=== PATIENT | female | born 2000 ===

== ENCOUNTER 2022-02-18 18:36 | Inpatient (IN) | payer SELFPAY ==
[~2022-02-18 18:36] MED LIST: ACETAMINOPHEN 325 MG TAB PO PRN; BUTORPHANOL 2 MG/1 ML INJ IV PRN; CARBOPROST TROMETHAMINE 250 MCG/1 ML INJ IM PRN; LACTATED RINGERS 1,000 ML IV SCH; LIDOCAINE (2%) 20 MG/1 ML VIAL 20 ML MDV INFILTRATI ONE; LOPERAMIDE 2 MG CAP PO PRN; METHYLERGONOVINE MALEATE 0.2 MG/ML VIAL IM PRN; MINERAL OIL 30 ML ORAL LIQD PO PRN; ONDANSETRON 4 MG/2 ML INJ IV PRN; OXYTOCIN 10 UNIT/1 ML INJ IM PRN; PROMETHAZINE 25 MG TAB PO PRN; TERBUTALINE 1 MG/1 ML INJ SUB-Q PRN; ePHEDrine SULFATE 50 MG/1 ML INJ IV PRN; miSOPROStol 200 MCG TAB PR PRN
[2022-02-18] MEDS ORDERED: OXYTOCIN DRIP 30 UNITS/500 ML BAG IV SCH ×2 (19:00)
[2022-02-18] MEDS ORDERED: AMPICILLIN/NS 2 GM/100 ML 2 GM/100 ML BAG IV ONE (20:00)
[2022-02-18 20:01] LABS: Hematocrit 37.9 % (30.3-42.9); Hemoglobin 12.4 gm/dl (10.1-14.3); Mean Corpuscular HGB Conc 33 % (30-34); Mean Corpuscular Volume 90 fl (79-97); Platelet Count 193 K/mm3 (140-440); Red Blood Count 4.24 M/mm3 (3.65-5.03); Red Cell Distribution Width 16.2 % (13.2-15.2)
[2022-02-18] MEDS: BUTORPHANOL 2 MG/1 ML INJ IV PRN (22:49)
[2022-02-18] MEDS ORDERED: AMPICILLIN/NS 1 GM/50 ML 1 GM/50 ML BAG IV SCH (23:00)
--- NOTE | 2022-02-18 23:52 | History and Physical Report ---
History of Present Illness Date of examination: 02/18/22 Date of admission: 02/18/2022 Chief complaint: Induction of labor History of present illness: 21-year-old at 40-2/7 weeks gestation presented to OB triage twice within the past 24 hours reporting regular and painful contractions. No vaginal bleeding. No leakage of fluid. Good movement. In OB triage, cervix was 2 to 3 cm dilated. She is admitted to labor and delivery for induction of labor. Past History Past Medical History: no pertinent history Past Surgical History: no surgical history Family/Genetic History: none Social history: no significant social history - Obstetrical History Expected Date of Delivery: 02/16/22 Actual Gestation: 40 Week(s) 3 Day(s) : 1 Para: 0 Medications and Allergies Allergies Allergy/AdvReac Type Severity Reaction Status Date / Time No Known Allergies Allergy Verified 02/18/22 08:39 Home Medications Medication Instructions Recorded Confirmed Last Taken Type Pnv No.121/Iron/Folic Acid 1 each PO DAILY 02/18/22 02/18/22 02/15/22 History [ Multivitamin Tablet] Active Meds: Active Medications Acetaminophen (Acetaminophen 325 Mg Tab) 650 mg PO Q4H PRN PRN Reason: Pain, Mild (1-3) Butorphanol Tartrate (Butorphanol 2 Mg/1 Ml Inj) 1 mg IV Q2H PRN PRN Reason: Pain, Moderate(4-6) LABOR PAIN Butorphanol Tartrate (Butorphanol 2 Mg/1 Ml Inj) 2 mg IV Q2H PRN PRN Reason: Pain , Severe (7-10) Last Admin: 02/18/22 22:49 Dose: 2 mg Carboprost Tromethamine (Carboprost Tromethamine 250 Mcg/1 Ml Inj) 250 mcg IM ONCE PRN PRN Reason: Uterine Bleeding Ephedrine Sulfate (Ephedrine Sulfate 50 Mg/1 Ml Inj) 10 mg IV Q2M PRN PRN Reason: Hypotension Oxytocin/Sodium Chloride (Pitocin/Ns 30 Unit/500ml) 30 units in 500 mls @ 2 mls/hr IV TITR ALPHONSE; Protocol Lactated Ringer's (Lactated Ringers) 1,000 mls @ 125 mls/hr IV DIRECT ALPHONSE Last Admin: 02/18/22 22:46 Dose: 125 mls/hr Oxytocin/Sodium Chloride (Pitocin/Ns 30 Unit/500ml) 30 units in 500 mls @ 40 mls/hr IV TITR ALPHONSE; Protocol Ampicillin Sodium (Ampicillin/Ns 1 Gm/50 Ml) 1 gm in 50 mls @ 100 mls/hr IV Q4H ALPHONSE; Protocol Loperamide HCl (Loperamide 2 Mg Cap) 2 mg PO ONCE PRN PRN Reason: give with Hemabate Methylergonovine Maleate (Methylergonovine Maleate 0.2 Mg/Ml Vial) 0.2 mg IM ONCE PRN PRN Reason: Uterine Bleeding Mineral Oil (Mineral Oil 30 Ml Oral Liqd) 30 ml PO QHS PRN PRN Reason: Constipation Misoprostol (Misoprostol 200 Mcg Tab) 800 mcg NM ONCE PRN PRN Reason: Uterine Bleeding Ondansetron HCl (Ondansetron 4 Mg/2 Ml Inj) 4 mg IV Q8H PRN PRN Reason: Nausea And Vomiting Oxytocin (Oxytocin 10 Unit/1 Ml Inj) 10 unit IM ONCE PRN PRN Reason: Uterine Bleeding Promethazine HCl (Promethazine 25 Mg Tab) 25 mg PO Q6H PRN PRN Reason: Nausea And Vomiting Terbutaline Sulfate (Terbutaline 1 Mg/1 Ml Inj) 0.25 mg SUB-Q ONCE PRN PRN Reason: Hyperstimulation/Hypertonicity Review of Systems All systems: negative - Vital Signs Vital signs: Vital Signs Temp Pulse Resp BP 73 F L 73 18 116/77 02/18/22 18:01 02/18/22 18:01 02/18/22 18:01 02/18/22 18:01 Temp Pulse Resp BP Pulse Ox 98.9 F 80 17 133/74 88 02/18/22 21:21 02/18/22 23:20 02/18/22 21:21 02/18/22 23:20 02/18/22 21:36 - Physical Exam Breasts: Positive: normal Cardiovascular: Regular rate Lungs: Positive: Normal air movement Abdomen: Positive: normal appearance Genitourinary (Female): Positive: normal external genitalia, normal perenium Vulva: both: normal Vagina: Positive: normal moisture Uterus: Positive: enlarged Adnexa: both: normal Anus/Rectum: Positive: normal perianal skin Deep Tendon Reflex Grade: Normal +2 - Obstetrical FHR: category 1 Uterine Contraction Monitor Mode: External Cervical Dilatation: 3 Cervical Effacement Percentage: 50 station: -3 Uterine Contraction Pattern: Irregular Uterine Contraction Intensity: Moderate Results Result Diagrams: 02/18/22 Unknown Abnormal lab results 02/18/22 Range/Units Unknown WBC 13.0 H (4.5-11.0) K/mm3 RDW 16.2 H (13.2-15.2) % All other labs normal. Ultrasound: pending Assessment and Plan - Patient Problems (1) 40 weeks gestation of Current Visit: Yes Status: Acute Plan to address problem: care is up-to-date. GBS status is unknown at this time. Morning shift to obtain records from the office. Currently, there are no risk factors for GBS; therefore, no intrapartum antibiotic prophylaxis for GBS at this time. However, if the patient develops risk factors for GBS, then start penicillin per 2010 CDC MMWR guidelines. (2) Postmaturity , 40-42 weeks gestation Current Visit: Yes Status: Acute Plan to address problem: This patient is admitted for induction of labor. (3) Encounter for elective induction of labor Current Visit: Yes Status: Acute Plan to address problem: Cervix is 2 to 3 cm dilated. Artificially rupture membranes. Start Pitocin per protocol as needed.
[2022-02-19] MEDS ORDERED: miSOPROStol 25 MCG TAB PO SCH (01:00)
[2022-02-19] MEDS ORDERED: OXYTOCIN DRIP 30 UNITS/500 ML BAG IV SCH (01:00)
[2022-02-19] MEDS: BUTORPHANOL 2 MG/1 ML INJ IV PRN (01:20)
--- NOTE | 2022-02-19 02:10 | Ultrasound Report ---
ULTRASOUND OBSTETRIC INDICATION: Abdominal pain, Post-due date. Clinical Gestational Age (GA): 40.3 weeks TECHNIQUE: Transabdominal. COMPARISON: None available. FINDINGS: There is a single intrauterine . Biparietal Diameter = 8.46 cm = 34 weeks, 1 day(s). Head Circumference = 31.78 cm = 35 weeks, 5 day(s). Abdominal Circumference = 31.28 cm = 35 weeks, 2 day(s). Femur Length = 7.26 cm = 37 weeks, 1 day(s). Average Ultrasound Age (AUA) = 35 weeks, 4 day(s). Heart Rate: 1:30 beats per minute. Estimated Weight in grams (if calculated): 2737 Estimated Weight Growth Percentile (if calculated): Not provided Position: cephalic. Cervix: closed. Length in cm (if measured): Not measured Placenta: Not well-visualized. Amniotic Fluid Volume: decreased Amniotic Fluid Index (MILIND) in cm (if calculated): 1.0. Maternal Adnexa: No significant abnormality. IMPRESSION: 1. Single, living intrauterine with estimated sonographic age of 35 weeks, 4 day(s). 2. Decreased amniotic fluid index, consistent with the patient being in active labor. Signer Name: Koby Cowan MD Signed: 02/19/2022 2:05 AM Workstation Name: [id number]
[2022-02-19] MEDS ORDERED: MINERAL OIL 30 ML ORAL LIQD ONE (03:20)
[2022-02-19] MEDS ORDERED: MINERAL OIL 30 ML ORAL LIQD PO ONE (03:22)
[2022-02-19] MEDS ORDERED: LIDOCAINE (2%) 20 MG/1 ML VIAL 20 ML MDV INFILTRATI ONE (03:36)
[2022-02-19] MEDS ORDERED: LANOLIN/ZINC/DIMETHICONE (LANSINOH) 7 GM TP PRN (03:38)
[2022-02-19] MEDS ORDERED: HYDROcodone/ACETAMINOPHEN 5-325 MG TAB PO PRN (03:38)
[2022-02-19] MEDS ORDERED: ACETAMINOPHEN 325 MG TAB PO PRN (03:38)
[2022-02-19] MEDS ORDERED: BENZOCAINE/MENTHOL 20/0.5% TOP SPRAY 56 GM TP PRN (03:38)
[2022-02-19] MEDS ORDERED: WITCH HAZEL/ GLYCERIN PAD TP PRN (03:38)
[2022-02-19] MEDS ORDERED: BUTORPHANOL 2 MG/1 ML INJ ONE (03:40)
--- NOTE | 2022-02-19 03:44 | Procedure Note ---
OB Delivery Note - Delivery Date of Delivery: 02/19/22 Surgeon: DORI DIAZ Photographic Intelligence Officer: SOPHIA MONTES Estimated blood loss: 500cc - Vaginal Delivery presentation: vertex (Retained placenta) Delivery position: OA Intrapartum events: other(please specify) (SGA) Delivery induction: AROM Delivery monitor: external FHT, external uterine, internal FHT, internal uterine Route of delivery: Delivery placenta: other (Manual removal of placenta under anesthesia in the O.R.) Delivery cord: 3 umbilical vessels Episiotomy: none Delivery laceration: 1st degree, other (1st degree perineal laceration and (L) periurethral laceration) Delivery repair: vicryl, chromic (Laceration were repaired with 2-0 Vicryl, 3-0 Vicryl, and 3-0 Chromic) Anesthesia: other (Manual exploration of placenta was performed under spinal anestheisa) Delivery comments: The patient did not have adequate pain control for manual exploration of the uterus to remove the placenta manually. Therefore, the patient was taken to the O.R. for spinal anesthesia. Bedside sonogram was performed by me and that confirmed retained placenta on the patient's right side. Spinal anesthesia was obtained. Placenta was easily removed manually. Bedside sonogram was performed again and that revealed absence of the placenta in the uterus. Suction dilation and curettage was not needed. 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 - A at 1 minute: 7 at 5 minutes: 9 Gender: Female
[2022-02-19] MEDS ORDERED: LOPERAMIDE 2 MG CAP PO PRN (03:48)
[2022-02-19] MEDS ORDERED: CARBOPROST TROMETHAMINE 250 MCG/1 ML INJ IM ONE ×2 (03:49→04:10)
[2022-02-19] MEDS ORDERED: MIDAZOLAM 2 MG/2 ML INJ ONE (04:56)
[2022-02-19] MEDS ORDERED: PROMETHAZINE 25 MG TAB PO PRN (04:59)
[2022-02-19] MEDS ORDERED: ONDANSETRON 4 MG/2 ML INJ IV PRN (04:59)
[2022-02-19] MEDS ORDERED: PROMETHAZINE 25 MG RECT SUPP PR PRN (04:59)
[2022-02-19] MEDS ORDERED: NALOXONE 0.4 MG/1 ML INJ IV PRN (04:59)
--- NOTE | 2022-02-19 05:01 | Anesthesia Consultation ---
Anesthesia Consult and Med Hx Date of service: 02/19/22 - Airway Anesthetic Teeth Evaluation: Good ROM Head & Neck: Adequate Mental/Hyoid Distance: Adequate Mallampati Class: Class II Intubation Access Assessment: Probably Good - Pulmonary Exam CTA: Yes - Cardiac Exam Cardiac Exam: RRR - Pre-Operative Health Status ASA Pre-Surgery Classification: ASA2 Proposed Anesthetic Plan: Spinal - Pulmonary Hx Smoking: No Hx Asthma: No Hx Sleep Apnea: No - Cardiovascular System Hx Hypertension: No Hx Heart Attack/AMI: No Hx Angina: No - Central Nervous System Hx Seizures: No Hx Psychiatric Problems: No - Gastrointestinal Hx Gastroesophageal Reflux Disease: No - Endocrine Hx Renal Disease: No Hx Liver Disease: No Hx Insulin Dependent Diabetes: No Hx Non-Insulin Dependent Diabetes: No Hx Hypothyroidism: No Hx Hyperthyroidism: No - Hematic Hx Anemia: No Hx Sickle Cell Disease: No - Other Systems Hx Alcohol Use: No
--- NOTE | 2022-02-19 05:01 | Anesthesia Day of Surgery ---
Anesthesia Day of Surgery - Day of Surgery Patient Examined: Yes Patient H&P Reviewed: Yes Patient is NPO: Yes Beta Blockers: No Cardiac Clearance: No Pulmonary Clearance: No Reese's Test: N/A
[2022-02-19] MEDS ORDERED: PHENYLEPHRINE/NS 1,000 MCG/10 ML SYRINGE (OR USE) IV ONE (05:37)
[2022-02-19] MEDS ORDERED: ROCURONIUM 50 MG/5 ML INJ IV ONE (05:42)
[2022-02-19] MEDS ORDERED: KETOROLAC 30 MG/1 ML INJ ONE (05:42)
--- NOTE | 2022-02-19 06:30 | Progress Note ---
Spinal Anesthesia Block - Spinal Anesthesia Block Start Time: 05:30 Stop Time: 05:35 Performed by:: SANTIAGO THOMSON Procedure: Spinal anesthesia block is being performed for [c/s]. H&P, labs have been reviewed. Patient's questions and concerns have been answered. Informed consent has been performed. Timeout has was performed. Patient in sitting position on side of bed. Sterile prep and drape was performed. 3 mL 1% lidocaine skin wheal at L [3]-L [4]. Needle introducer advanced. 24-gauge spinal needle advanced, [+] CSF [-] blood. [Marcaine 7.5mg] Spinal dose was given. All needles removed. Patient tolerated procedure well.
[2022-02-19] MEDS: DOCUSATE SODIUM 100 MG CAP PO SCH ×2 (10:28→22:22)
[2022-02-19] MEDS: IBUPROFEN 800 MG TAB PO SCH ×2 (10:28→18:03)
[2022-02-19] MEDS: AMOXICILLIN/K CLAV 875/125MG TAB PO SCH ×2 (10:35→22:22)
--- NOTE | 2022-02-19 14:52 | Post Anesthesia Evaluation ---
- Post Anesthesia Evaluation Patient Participated: Yes Airway Patent: Yes Stable Respiratory Function: Yes Nausea/Vomiting: No Temp > 96.8F: Yes Pain Manageable: Yes Adequeate Hydration: Yes Anesthesia Complications: No Block Receding Appropriately: Yes Patient on Ventilator: No
[2022-02-20] MEDS: IBUPROFEN 800 MG TAB PO SCH ×4 (06:00→18:46)
[2022-02-20 08:05] LABS: Hematocrit 25.2 % (30.3-42.9); Hemoglobin 8.3 gm/dl (10.1-14.3); Mean Corpuscular HGB Conc 33 % (30-34); Mean Corpuscular Volume 90 fl (79-97); Platelet Count 137 K/mm3 (140-440); Red Cell Distribution Width 16.4 % (13.2-15.2)
--- NOTE | 2022-02-20 09:01 | Progress Note ---
Assessment and Plan A: day 1 S/P with manual removal of placenta. Anemia. P: Iron supplementation. Continue routine care. Anticipate discharge home tomorrow if patient continues to do well. Subjective - Subjective Date of service: 02/20/22 Principal diagnosis: day 1 S/P with manual removal placenta Patient reports: appetite normal, voiding normally, pain well controlled, flatus, ambulating normally, no dizzy ambulation, no nauseated [place]: doing well Objective - Vital Signs Latest vital signs: Vital Signs Temp Pulse Resp BP Pulse Ox Pulse Ox 02/20/22 06:00 18 02/20/22 00:48 99.1 F 94 H 18 108/71 97 02/20/22 00:00 18 02/19/22 20:00 100 02/19/22 19:03 18 02/19/22 16:06 98.5 F 87 18 108/63 98 Intake and Output 02/19/22 02/20/22 02/20/22 23:59 07:59 15:59 Intake Total 600 600 Output Total 600 Balance 0 600 Intake: Intake, Free Water 600 600 Output: Urine 600 Void 600 Other: Total, Output Amount 600 # Voids Void 2 1 - Exam Cardiovascular: Present: Regular rate Lungs: Present: Clear to auscultation Abdomen: Present: normal appearance, soft, normal bowel sounds. Absent: distention, tenderness, guarding, rigidity Uterus: Present: normal, firm, fundal height below umbilicus (fundus firm and midline at 2 FB below umbilicus). Absent: bogginess, tenderness Extremities: Absent: tenderness - Labs Labs: Abnormal lab results 02/20/22 Range/Units 07:39 WBC 12.3 H (4.5-11.0) K/mm3 RBC 2.80 L (3.65-5.03) M/mm3 Hgb 8.3 L D (10.1-14.3) gm/dl Hct 25.2 L D (30.3-42.9) % RDW 16.4 H (13.2-15.2) % Plt Count 137 L (140-440) K/mm3
[2022-02-20] MEDS: AMOXICILLIN/K CLAV 875/125MG TAB PO SCH ×2 (10:13→22:10)
[2022-02-20] MEDS: DOCUSATE SODIUM 100 MG CAP PO SCH ×2 (13:25→22:10)
[2022-02-20] MEDS: FERROUS SULFATE 325 MG TAB PO SCH ×2 (13:25→22:10)
[2022-02-20 17:21] LABS: Basophils % (Auto) 0.4 % (0.0-1.8); Eosinophils # (Auto) 0.1 K/mm3 (0.0-0.4); Eosinophils % (Auto) 0.9 % (0.0-4.3); Hemoglobin 8.7 gm/dl (10.1-14.3); Lymphocytes # (Auto) 2.5 K/mm3 (1.2-5.4); Mean Corpuscular HGB Conc 32 % (30-34); Mean Corpuscular Volume 91 fl (79-97); Monocytes # (Auto) 0.9 K/mm3 (0.0-0.8); Monocytes % (Auto) 7.7 % (0.0-7.3); Platelet Count 160 K/mm3 (140-440); Red Blood Count 2.95 M/mm3 (3.65-5.03); Red Cell Distribution Width 16.8 % (13.2-15.2)
[2022-02-21] MEDS: IBUPROFEN 800 MG TAB PO SCH ×3 (00:15→17:10)
--- NOTE | 2022-02-21 06:55 | Progress Note ---
Assessment and Plan A: day 2 S/P . Anemia. P: Discharge patient home today. Discussed with patient discharge instructions and warning signs. Advised patient to take iron supplements and augmentin as prescribed (prescriptions printed and left on patient's chart). Advised patient to avoid lifting and intercourse. Advised patient to follow up at [facility] in 2 weeks. Patient voiced understanding of all instructions. Subjective - Subjective Date of service: 02/21/22 Principal diagnosis: day 2 S/P with manual removal placenta Patient reports: appetite normal, voiding normally, pain well controlled, flatus, ambulating normally, no dizzy ambulation, no nauseated : doing well Objective - Vital Signs Latest vital signs: Vital Signs Temp Pulse Resp BP BP Pulse Ox Pulse Ox 02/21/22 05:31 18 02/21/22 00:25 98.2 F 70 18 110/73 98 02/21/22 00:15 18 02/20/22 21:00 100 02/20/22 19:46 18 02/20/22 18:39 100 02/20/22 16:29 98.2 F 91 H 18 114/72 97 02/20/22 16:00 100 02/20/22 14:15 100 02/20/22 12:41 100 02/20/22 10:05 100 02/20/22 08:06 98.5 F 99 H 18 115/73 98 02/20/22 07:59 100 Intake and Output 02/20/22 02/20/22 02/21/22 15:59 23:59 07:59 Intake Total 240 240 Balance 240 240 Intake: Oral 240 240 Other: Total, Intake Amount 120 120 # Voids Void 1 1 - Exam Cardiovascular: Present: Regular rate Lungs: Present: Clear to auscultation Abdomen: Present: normal appearance, soft, normal bowel sounds. Absent: distention, tenderness, guarding, rigidity Uterus: Present: normal, firm, fundal height below umbilicus (fundus firm and midline at 2 FB below umbilicus). Absent: bogginess, tenderness Extremities: Absent: tenderness - Labs Labs: Abnormal lab results 02/20/22 02/20/22 Range/Units 07:39 16:42 WBC 12.3 H 12.0 H (4.5-11.0) K/mm3 RBC 2.80 L 2.95 L (3.65-5.03) M/mm3 Hgb 8.3 L D 8.7 L (10.1-14.3) gm/dl Hct 25.2 L D 27.0 L (30.3-42.9) % RDW 16.4 H 16.8 H (13.2-15.2) % Plt Count 137 L (140-440) K/mm3 [place] % (Auto) 7.7 H (0.0-7.3) % [place] # (Auto) 0.9 H (0.0-0.8) K/mm3 Seg Neutrophils # 8.4 H (1.8-7.7) K/mm3
--- NOTE | 2022-02-21 07:03 | Discharge Summary ---
Providers - Providers Date of Admission: 02/19/22 03:38 Date of discharge: 02/21/22 Attending physician: ZURDO STEVENS MD Primary care physician: ZURDO STEVENS MD Hospitalization Reason for admission: active labor Delivery: Laceration: 1st degree Other procedures: other (manual removal of placenta) Discharge diagnosis: IUP at term delivered baby: female Pertinent studies: Labs Hospital course: Stable hospital course Condition at discharge: Good Disposition: 01 HOME / SELF CARE / HOMELESS - Discharge Diagnoses (1) Term delivered Status: Acute (2) Anemia Status: Acute Plan - Discharge Medications Prescriptions: Amoxicillin/Potassium Clav [Augmentin 875-125 Tablet] 1 each PO Q12H 5 Days #10 tab Ferrous Sulfate [Feosol 325 MG tab] 325 mg PO BID 30 Days #60 tablet - Provider Discharge Summary Activity: routine, no sex for 6 weeks, no heavy lifting 4 weeks, no strenuous exercise Diet: routine Instructions: routine Additional instructions: Continue taking your iron supplements and augmentin as prescribed (prescription printed and will be given to you by nurse at time of discharge). Follow up at [facility] in 2 weeks. Call your doctor immediately for: * Fever > 100.5 * Heavy vaginal bleeding ( >1 pad per hour) * Severe persistent headache * Shortness of breath * Reddened, hot, painful area to leg or breast - Follow up plan Follow up: DEANNA COLE CNM [Advanced Practice Nurse] - 14 Days
[2022-02-21 09:21] LABS: Basophils # (Auto) 0.1 K/mm3 (0.0-0.1); Basophils % (Auto) 0.5 % (0.0-1.8); Eosinophils # (Auto) 0.2 K/mm3 (0.0-0.4); Eosinophils % (Auto) 1.3 % (0.0-4.3); Hematocrit 27.9 % (30.3-42.9); Hemoglobin 9.3 gm/dl (10.1-14.3); Lymphocytes # (Auto) 2.5 K/mm3 (1.2-5.4); Lymphocytes % (Auto) 21.1 % (13.4-35.0); Mean Corpuscular HGB Conc 33 % (30-34); Mean Corpuscular Volume 89 fl (79-97); Monocytes # (Auto) 0.8 K/mm3 (0.0-0.8); Monocytes % (Auto) 6.4 % (0.0-7.3); Platelet Count 171 K/mm3 (140-440); Red Blood Count 3.13 M/mm3 (3.65-5.03); Red Cell Distribution Width 16.1 % (13.2-15.2)
[2022-02-21] MEDS: FERROUS SULFATE 325 MG TAB PO SCH (10:27)
[2022-02-21] MEDS: DOCUSATE SODIUM 100 MG CAP PO SCH (10:27)
[2022-02-21] MEDS: AMOXICILLIN/K CLAV 875/125MG TAB PO SCH (10:27)
[2022-02-21] MEDS ORDERED: MEASLES, MUMPS & RUBELLA 12,500 UNIT/0.5 ML VACCINE SUB-Q ONE (18:00)
[2022-02-21 18:40] VITALS: BP 112/80
== END 2022-02-21 18:35 | disposition home or self-care (01) | DRG 807 ==
LOC: TRG 18:36 → APU 18:36 → LD 19:05 → TRG 02-19 03:38 → OB 02-19 08:20
PROVIDERS: ADMIT Obstetrics & Gynecology; ATTEND Obstetrics & Gynecology
PROC: 10E0XZZ Delivery of Products of Conception, External Approach (ICD-10-PCS; principal; 2022-02-19)
PROC: 10907ZC Drainage of Amniotic Fluid, Therapeutic from Products of Conception, Via Natural or Artificial Opening (ICD-10-PCS; 2022-02-19)
PROC: 0HQ9XZZ Repair Perineum Skin, External Approach (ICD-10-PCS; 2022-02-19)
PROC: 3E0134Z Introduction of Serum, Toxoid and Vaccine into Subcutaneous Tissue, Percutaneous Approach (ICD-10-PCS; 2022-02-21)
DX: O48.0 Post-term pregnancy (principal); Z37.0 Single live birth; O99.013 Anemia complicating pregnancy, third trimester; O48.1 Prolonged pregnancy; Z20.822 Contact with and (suspected) exposure to COVID-19; Z3A.40 40 weeks gestation of pregnancy; O70.0 First degree perineal laceration during delivery; Z23 Encounter for immunization
CPT/HCPCS: 36415; 76816; 85025; 85027; 86592; 86706; 86762; 86850; 86900; 86901; 87806; 88307; 90707; 99211; G0378; J3490; G0463; J0595; J1885; J2250; J2370; J7120; U0003